=== PATIENT | female | born 1975 | race Caucasian/White ===

== ENCOUNTER → 2017-10-05 | Outpatient (CLI) | payer OTHER ==
[2017-10-05 12:48] LABS: T4, Free (Free Thyroxine) 0.96 ng/dL (0.78-2.19)
== END | disposition home or self-care (01) ==
LOC: LABWHC1 11:47
PROVIDERS: ATTEND Obstetrics & Gynecology
DX: R53.83 Other fatigue (principal); Z13.220 Encounter for screening for lipoid disorders; Z13.1 Encounter for screening for diabetes mellitus
CPT/HCPCS: 36415; 80061; 82306; 82947; 84439; 84443

== ENCOUNTER → 2017-10-11 | Outpatient (CLI) | payer OTHER ==
--- NOTE | 2017-10-11 14:25 | MM ---
Reason for exam: screening (asymptomatic). Baseline mammogram. Physical Findings: Nurse did not find any significant physical abnormalities on exam. MG Screening Mammo w CAD Bilateral CC, MLO, and XCCL view(s) were taken. The breast tissue is heterogeneously dense. This may lower the sensitivity of mammography. No suspicious abnormality. These results were verbally communicated with the patient and result sheet given to the patient on 10/11/17. ASSESSMENT: Negative, BI-RAD 1 RECOMMENDATION: Routine screening mammogram of both breasts in 1 year.
== END | disposition home or self-care (01) ==
LOC: RADMAMWWP 13:06
PROVIDERS: ATTEND Obstetrics & Gynecology
DX: Z12.31 Encounter for screening mammogram for malignant neoplasm of breast (principal)
CPT/HCPCS: 77067

== ENCOUNTER → 2018-05-17 | Outpatient (CLI) | payer OTHER ==
[2018-05-17 10:13] LABS: Basophils % (A) 0 %; Eosinophils # (A) 0.1 k/uL (0-0.7); Eosinophils % (A) 1 %; HCT 41.1 % (34.0-46.0); HGB 14.1 gm/dL (11.4-16.0); Lymphocytes % (A) 18 %; MCHC 34.2 g/dL (31.0-37.0); MCV 87.8 fL (80.0-100.0); Monocytes # (A) 0.4 k/uL (0-1.0); Monocytes % (A) 8 %; Neutrophils # (A) 3.8 k/uL (1.3-7.7); Neutrophils % (A) 71 %; Platelet Count 235 k/uL (150-450); RBC 4.68 m/uL (3.80-5.40); RDW 13.2 % (11.5-15.5); WBC 5.4 k/uL (3.8-10.6)
== END | disposition home or self-care (01) ==
LOC: LABPAT 09:40
PROVIDERS: ATTEND Obstetrics & Gynecology
DX: Z01.812 Encounter for preprocedural laboratory examination (principal)
CPT/HCPCS: 36415; 85025

== ENCOUNTER 2018-05-23 06:01 | Day surgery (SDC) | payer OTHER ==
[2018-05-15 15:49] VITALS: BMI 24.1
--- NOTE | 2018-05-22 20:34 | P.HPOB ---
History of Present Illness H&P Date: 05/22/18 Chief Complaint: Menorrhagia with irregular cycle, possible endometrial polyp This is a 42-year-old female 5 para 4 who presents for dilation and curettage with hysteroscopy and NovaSure endometrial ablation secondary to menorrhagia with irregular cycle and possible endometrial polyp on ultrasound. She was tried on a course of low-dose control pills but had to discontinue due to forgetting to take pills. Her menses are occurring every 21 days and lasting 7-8 days with the first 2 days heavy with clots and changing her tampon and pad every half hour. She also gets paretic breakthrough bleeding in between her menses. Her pelvic ultrasound showed a uterus measuring 8.5 x 5.5 x 4.3 cm with an endometrial thickness of 11 mm and a possible endometrial polyp measuring 1.1 x 2.5 cm. Both ovaries appeared normal. She has previously had a tubal ligation. Obstetrical history: . History of 4 deliveries and 1 spontaneous miscarriage. Gynecologic history: No history of sexually transmitted diseases. Social history: She is . 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 Review of Systems Constitutional: Reports fatigue, Reports night sweats Eyes: denies blurred vision, denies pain Ears, nose, mouth and throat: Denies headache, Denies sore throat Cardiovascular: Denies chest pain, Denies shortness of breath Respiratory: Denies cough Gastrointestinal: Reports constipation Genitourinary: Reports dysmenorrhea, Reports dyspareunia, Reports menorrhagia, Reports pelvic pain Menstruation: Reports cycle < 21 days, Reports period heavy Musculoskeletal: Reports low back pain Integumentary: Denies pruritus, Denies rash Neurological: Denies numbness, Denies weakness Psychiatric: Denies anxiety, Denies depression Past Medical History Past Medical History: No Reported History Additional Past Medical History / Comment(s): MENORRHAGIA WITH ENDOMETRIAL POLYP. History of Any Multi-Drug Resistant Organisms: None Reported Past Surgical History: Appendectomy, Section (X 4), Cholecystectomy, Tubal Ligation Past Anesthesia/Blood Transfusion Reactions: No Reported Reaction Past Psychological History: No Psychological Hx Reported Smoking Status: Former smoker Past Alcohol Use History: Occasional Additional Past Alcohol Use History / Comment(s): Quit smoking 13 yrs ago, smoked 9-10 yrs, 1PPD. Past Drug Use History: None Reported - Past Family History Mother Family Medical History: No Reported History Medications and Allergies Home Medications Medication Instructions Recorded Confirmed Type Cyanocobalamin (Vitamin B-12) 1,000 mcg PO DAILY 04/16/18 05/15/18 History [Vitamin B-12] Ibuprofen [Motrin Ib] 400 mg PO ONCE PRN 05/15/18 05/15/18 History Allergies Allergy/AdvReac Type Severity Reaction Status Date / Time No Known Allergies Allergy Verified 05/15/18 15:20 Exam Osteopathic Statement: *. No significant issues noted on an osteopathic structural exam other than those noted in the History and Physical/Consult. HEENT: Within normal limits Heart: Regular rate and rhythm Lungs: Clear to auscultation bilaterally Abdomen: Soft, nontender Pelvic exam: Uterus is small, anteverted, with no adnexal masses or tenderness palpated. Extremities: Negative edema Assessment and Plan (1) Menorrhagia with irregular cycle Status: Acute Code(s): N92.1 - EXCESSIVE AND FREQUENT MENSTRUATION WITH IRREGULAR CYCLE SNOMED Code(s): 672757872 (2) Endometrial polyp Status: Acute Code(s): N84.0 - POLYP OF CORPUS UTERI SNOMED Code(s): 64798609 Plan: Proceed with dilation and curettage with hysteroscopy and NovaSure endometrial ablation. I have discussed the risks, benefits, and alternative therapies for the above- mentioned procedure and for both sedation/anesthesia as well as necessary blood products administration, if indicated, as they pertain to this patient. The patient has indicated her understanding and acceptance of the risks and procedures discussed.
[~2018-05-23 06:01] MED LIST: DEXAMETHASONE SOD PHOSPHATE 10 MG/ML 1 ML VIAL IV ONE; LIDOCAINE 1% 20 ML VIAL (10MG/ML) FOR IV START INTRADERMA PRN; MIDAZOLAM 2 MG/2 ML VIAL IV PRN; ONDANSETRON 4 MG/2 ML VIAL IVP ONE; Pre Op ABX Message 1 EACH MISC MISCELLANE ONE; fentaNYL (PF) 50 MCG/ML 2 ML AMP IV PRN
[2018-05-23] MEDS: LACTATED RINGERS 1,000 ML IV SCH ×2 (06:49→07:35)
[2018-05-23] MEDS ORDERED: PROPOFOL 10 MG/ML 20 ML VIAL IV ONE (07:36)
[2018-05-23] MEDS ORDERED: fentaNYL (PF) 50 MCG/ML 2 ML AMP ONE (07:36)
[2018-05-23] MEDS ORDERED: LIDOCAINE 1% INJ 10MG/ML (20 ML MDV) ONE (07:36)
[2018-05-23] MEDS ORDERED: MIDAZOLAM 2 MG/2 ML VIAL ONE (07:36)
[2018-05-23] MEDS ORDERED: KETOROLAC 30 MG/ML 1 ML VIAL ONE (07:36)
[2018-05-23 08:21] VITALS: TEMP 97.7
[2018-05-23 08:22] VITALS: RESP 16
--- NOTE | 2018-05-23 08:45 | P.OP ---
Date of Procedure: 05/23/18 Preoperative Diagnosis: Menorrhagia with irregular cycle, possible endometrial polyp Postoperative Diagnosis: Same Procedure(s) Performed: Dilation and curettage with hysteroscopy Anesthesia: other (Mask general) Surgeon: Manisha Decker Estimated Blood Loss (ml): 10 Pathology: other (Endometrial curettings) Condition: stable Disposition: same day Indications for Procedure: This is a 42-year-old female 5 para 4 who presents for dilation and curettage with hysteroscopy secondary to menorrhagia with irregular cycle and possible endometrial polyp on ultrasound. She was tried on a course of low- dose control pills but had to discontinue due to forgetting to take pills. Her menses are occurring every 21 days and lasting 7-8 days with the first 2 days heavy with clots and changing her tampon and pad every half hour. She also gets paretic breakthrough bleeding in between her menses. Her pelvic ultrasound showed a uterus measuring 8.5 x 5.5 x 4.3 cm with an endometrial thickness of 11 mm and a possible endometrial polyp measuring 1.1 x 2.5 cm. Both ovaries appeared normal. She has previously had a tubal ligation. Operative Findings: Uterus is mid to anteverted position with no adnexal masses palpated. Uterus is sounded to 9-1/2 cm. Upon hysteroscopy, both tubal ostia are visualized. There is what appears to be a small endometrial polyp anteriorly near the lower uterine segment. A minimal to moderate amount of endometrial curettings are obtained. Description of Procedure: Patient is taken the operating room where she is placed in the dorsal lithotomy position. She is prepped and draped in the normal sterile fashion. Bladder is drained with a catheter. Pelvic exam is performed under anesthesia. Uterus is found to be mid to anteverted position with no adnexal masses palpated. A weighted speculum was placed in the patient's vagina and a right angle retractor was used to visualize the cervix. The single-tooth tenaculum was used to grasp the anterior lip of the cervix. Next the uterus is sounded to 9-1 /2 cm. Cervix is gently dilated with Isidro dilators until a hysteroscope could be passed. Hysteroscopy was performed using normal saline. The above noted findings are made. Pictures are taken. Next the hysteroscope was withdrawn. The cervix is gently dilated further. A polyp forcep was introduced with a small amount of polypoid tissue obtained. Next a medium-size sharp curet was introduced and sharp curettage was performed until a gritty texture was noted. A minimal to moderate amount of tissue was obtained. Next the single-tooth tenaculum is removed and no bleeding was noted. All other instruments are removed from the vagina. All sponge counts are correct. The patient is taken to recovery room in stable condition.
[2018-05-23 09:21] VITALS: BP 129/79; PULSE 65
== END 2018-05-23 09:32 | disposition home or self-care (01) ==
LOC: OR 06:01
PROVIDERS: ATTEND Obstetrics & Gynecology
DX: N92.0 Excessive and frequent menstruation with regular cycle (principal); N92.6 Irregular menstruation, unspecified; N84.0 Polyp of corpus uteri; Z87.891 Personal history of nicotine dependence
CPT/HCPCS: 81025; 88305; 58558; J2250; J1100; J2405; J2001; J3010; J1885; J2704

== ENCOUNTER → 2021-04-25 | Outpatient (CLI) | payer BC ==
[2021-04-25 21:10] LABS: African American GFR (CKD) 90.8 (60.0-200.0); Albumin 4.6 g/dL (3.80-4.90); Albumin/Globulin Ratio 1.7 (1.60-3.17); Anion Gap 10.5 mmol/L (4.00-12.00); BUN/Creat Ratio 17.78 Ratio (12.00-20.00); Calcium 9.4 mg/dL (8.7-10.3); Carbon Dioxide 19.5 mmol/L (21.6-31.8); Chol/HDL Ratio 3.53; Globulin 2.7 g/dL (1.6-3.3); LDL Cholesterol,Calculated 137.6 mg/dL (0.0-131.0); Non-African American GFR(CKD) 78.3 (60.0-200.0); Potassium 4.3 mmol/L (3.5-5.5); Total Bilirubin 0.4 mg/dL (0.2-1.2); Total Protein 7.3 g/dL (6.2-8.2); VLDL Calculation 19.4 mg/dL (5.00-40.00)
== END | disposition home or self-care (01) ==
LOC: LABWHC1 08:47
PROVIDERS: ATTEND Internal Medicine Clinical Cardiac Electrophysiology
DX: I49.3 Ventricular premature depolarization (principal); E78.5 Hyperlipidemia, unspecified; G80.9 Cerebral palsy, unspecified
CPT/HCPCS: 36415; 80053; 80061; 84443

== ENCOUNTER → 2024-01-01 | Outpatient (CLI) | payer OTHER ==
[2024-01-01 09:15] VITALS: BP 143/86; PULSE 78; RESP 16; TEMP 97.9
--- NOTE | 2024-01-01 09:43 | P.HPOB ---
History of Present Illness H&P Date: 01/01/24 Chief Complaint: The patient is here for her routine gynecologic exam and ma mmogram. This is a 48-year-old with an LMP of 12/23/2023. Patient is here to establish with this office. It has been about 2 years since her last pelvic exam. She is status post tubal ligation. She previously saw Dr. Decker for her gynecologic care. Her menstrual periods are about monthly, but they have been predictable and seem to be getting longer and heavier. They are now lasting about 10 days with 4 days of heavier flow. Menstrual periods are heavier than others. On the very heavy days she can change her protection every 30 minutes and they can be crampy as well. Review of Systems The patient has gained 5 pounds over the last year. She denies respiratory, cardiac, or G.I. problems. Past Medical History Past Medical History: No Reported History Additional Past Medical History / Comment(s): MENORRHAGIA WITH ENDOMETRIAL POLYP. 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 Cryo therapy of the cervix in 2001 History of Any Multi-Drug Resistant Organisms: None Reported Past Surgical History: Appendectomy, Section, Cholecystectomy, Tubal Ligation Additional Past Surgical History / Comment(s): section x 4. Past Anesthesia/Blood Transfusion Reactions: No Reported Reaction Past Psychological History: No Psychological Hx Reported Smoking Status: Former smoker Past Alcohol Use History: Occasional (1 drink per week.) Additional Past Alcohol Use History / Comment(s): Quit smoking 2004, smoked 9-10 yrs, 1PPD. Past Drug Use History: None Reported Additional History: Patient has been since 2010. 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 - Past Family History Mother Family Medical History: COPD, Hypertension Additional Family Medical History / Comment(s): . Father Family Medical History: Hypertension, Myocardial Infarction ([place]) Additional Family Medical History / Comment(s): . Medications and Allergies Home Medications Medication Instructions Recorded Confirmed Type Ibuprofen [Motrin Ib] 400 mg PO ONCE PRN 05/15/18 01/01/24 History Allergies Allergy/AdvReac Type Severity Reaction Status Date / Time No Known Allergies Allergy Verified 01/01/24 08:32 Exam Vital Signs Temp Pulse Resp BP Pulse Ox 01/01/24 08:34 97.9 F 78 16 143/86 97 Intake and Output 12/31/23 01/01/24 01/01/24 22:59 06:59 14:59 Other: Weight 61.689 kg Height 5 foot 1 inch, weight 136 pounds, BMI 25.7. This is a well-developed well-nourished white female who is alert and oriented times 3 in no acute distress. HEENT: Within normal limits. NECK: Supple without mass or thyromegaly. CHEST AND LUNGS: Clear to auscultation. HEART: Regular rate and rhythm. BREASTS: Are without mass or discharge. AXILLARY EXAM: Negative for adenopathy. BACK: Negative for CVA tenderness. ABDOMEN: Soft, nontender, without palpable masses. PELVIC EXAM: Normal external genitalia. Cervix and vagina appear normal. There is no unusual discharge. There is no evidence of prolapse. The uterus is midposition, nongravid size and nontender. There are no palpable adnexal masses or tenderness. RECTAL EXAM: negative for mass or tenderness and is negative for occult blood. EXTREMITIES: Nontender. IMPRESSION: 1. 48-year-old female who is status post tubal ligation, normal gynecologic exam. 2. Menorrhagia with dysmenorrhea. 3. Elevated blood pressure. PLAN: 1. Pap smear cotest was performed. 2. Self breast awareness was discussed with the patient. We have also discussed symptoms associated with inflammatory breast cancer. 3. Screening mammogram will be done today. 4. We have discussed various options for her menorrhagia and dysmenorrhea. We will have a trial of meclofenamate sodium 100 mg p.o. 3 times daily as needed for heavy menstrual flow up to 6 days per cycle. Electronic prescription will be sent to [facility]. We have discussed other options including oral contraception, Mirena IUD, endometrial ablation, and hysterectomy 5. Pelvic ultrasound was recommended to further evaluate the uterus because of the menorrhagia. She was once told by Dr. Decker that she may not be a candidate for endometrial ablation because of the location of her bladder. We will try to assess the thickness of the myometrium at the lower uterine segment. 6. Osteoporosis prevention was discussed. I have stressed the importance of adequate calcium, vitamin D and regular exercise. Recommended amounts of calcium and vitamin D were also discussed. 7. Colorectal cancer screening was discussed. She will discuss this with her PCP. 8. She was advised to return in one year for her annual well woman exam as needed. 9. Her elevated blood pressure was discussed. I have recommended that she check her own blood pressures on a regular basis since she does have a blood pressure cuff she will follow-up with her PCP for blood pressure elevations
--- NOTE | 2024-01-02 00:29 | MM ---
Reason for Exam: Screening (asymptomatic). Last mammogram was performed 2 year(s) and 10 month(s) ago. Patient History: Menarche at age 16. First Full-Term at age 20. Last menstrual period: 12/23/2023 Risk Values: Jackeline 5 year model risk: 0.6%. NCI Lifetime model risk: 6.3%. Prior Study Comparison: 10/11/2017 Bilateral Screening Mammogram, [facility]. 03/09/2021 Bilateral Screening Mammogram, [facility]. Tissue Density: There are scattered areas of fibroglandular density. Findings: Analyzed By CAD. The pattern is symmetrical. No significant interval change No suspicious groups of microcalcifications, spiculated or lobular masses, architectural distortion or other secondary signs of malignancy are mammographically apparent.The pattern is symmetrical. No suspicious groups of microcalcifications, spiculated or lobular masses, architectural distortion or other secondary signs of malignancy are mammographically apparent. Overall Assessment: Negative, BI-RAD 1 Management: Screening Mammogram of both breasts in 1 year. Electronically signed and approved by: Nestor Hylton D.O. Radiologis
== END ==
LOC: WWCWWP 08:17
PROVIDERS: ATTEND Obstetrics & Gynecology
DX: Z01.419 Encounter for gynecological examination (general) (routine) without abnormal findings (principal); Z12.31 Encounter for screening mammogram for malignant neoplasm of breast; N92.0 Excessive and frequent menstruation with regular cycle; N94.6 Dysmenorrhea, unspecified; R03.0 Elevated blood-pressure reading, without diagnosis of hypertension; Z98.51 Tubal ligation status; Z87.891 Personal history of nicotine dependence
CPT/HCPCS: 77067

== ENCOUNTER → 2024-01-27 | Outpatient (CLI) | payer OTHER ==
--- NOTE | 2024-01-27 18:07 | US ---
EXAMINATION TYPE: US pelvis complete transvag DATE OF EXAM: 01/27/2024 COMPARISON: NONE CLINICAL INDICATION: Female, 48 years old with history of N95.0 POSTMENOPAUSAL BLEEDING; Irregular me nses. Csection x 4. TECHNIQUE: Transvaginal (TV) and Transabdominal (TA) . Transabdominal sonographic images of the pel vis were acquired. Transvaginal sonographic images were medically necessary to better assess the fol lowing anatomy: Endometrium Date of LMP: 12/23/2023, EXAM MEASUREMENTS: Uterus: 9.1 x 4.1 x 3.4 cm Endometrial Stripe: 0.3 cm Right Ovary: 1.7 x 1.4 x 1.0 cm Left Ovary: 2.2 x 1.4 x 1.2 cm 1. Uterus: Anteverted Heterogenous. Csection scar seen. Possible isoechoic anterior mid lesion = 2.0 x 2.2 x 1.7 cm. 2. Endometrium: limited visualization 3. Right Ovary: wnl 4. Left Ovary: wnl 5. Bilateral Adnexa: wnl 6. Posterior cul-de-sac: no free fluid IMPRESSION: 1. No evidence for acute process. 2. Fibroid uterus. 3. Endometrium within normal limits for thickness.
== END | disposition home or self-care (01) ==
LOC: RADUSWWP 16:10
PROVIDERS: ATTEND Obstetrics & Gynecology
DX: D25.9 Leiomyoma of uterus, unspecified (principal); N92.0 Excessive and frequent menstruation with regular cycle; N94.5 Secondary dysmenorrhea
CPT/HCPCS: 76830; 76856

== ENCOUNTER → 2024-07-28 | Outpatient (CLI) | payer OTHER ==
[2024-07-28 15:21] LABS: HCT 42.5 % (37.2-46.3); MCHC 32.9 g/dL (32.0-37.0); Mean Platelet Volume 11.2 FL (9.5-12.2); NRBC Per 100 WBC 0 X 10*3/uL (0.00-0.01); Platelet Count 285 X 10*3/uL (140-440); RBC 4.67 X 10*6/uL (4.10-5.20); WBC 4.53 X 10*3/uL (4.50-10.00)
[2024-07-28 16:05] LABS: Erythrocyte Sedimentation Rate 8 mm/Hr (0-20)
[2024-07-28 16:31] LABS: ALT 50 U/L (8-44); AST 30 U/L (13-35); Albumin 4.6 g/dL (3.8-4.9); Albumin/Globulin Ratio 1.84 Ratio (1.60-3.17); Alkaline Phosphatase 48 U/L (41-126); Blood Urea Nitrogen 15.2 mg/dL (9.0-27.0); C Reactive Protein, High Sens 0.938 mg/L (0.000-3.000); Calcium 9.8 mg/dL (8.7-10.3); Carbon Dioxide 23.2 mmol/L (21.6-31.8); Chloride 105 mmol/L (96-109); Globulin 2.5 g/dL (1.6-3.3); Glucose 94 mg/dL (70-110); Potassium 4.7 mmol/L (3.5-5.5); Sodium 142 mmol/L (135-145); Total Bilirubin 0.2 mg/dL (0.3-1.2); Total Protein 7.1 g/dL (6.2-8.2)
== END | disposition home or self-care (01) ==
LOC: LABWHC1 09:29
PROVIDERS: ATTEND Internal Medicine Clinical Cardiac Electrophysiology
CPT/HCPCS: 36415; 80053; 84443; 85027; 85652; 86141

== ENCOUNTER → 2025-01-13 | Outpatient (CLI) | payer OTHER ==
[2025-01-13 08:32] VITALS: BP 135/90; PULSE 76; RESP 16; TEMP 98
--- NOTE | 2025-01-13 09:05 | P.HPOB ---
History of Present Illness H&P Date: 01/13/25 Chief Complaint: The patient is here for her routine gynecologic exam and ma mmogram. This is a 49-year-old G4, P4 with an LMP of 12/02/2024. The patient is status post tubal ligation. She states her menstrual periods have become more irregular about every 1 to 3 months with variable flow. She states they were regular up until about 6 months ago. She has occasional night hot flashes, but otherwise denies any significant vasomotor symptoms. She is otherwise without gynecologic complaints. She has been trying to exercise more for weight control. She states when she was doing abdominal crunches or sit ups, she noticed a slight bulge in the right lower abdomen that was uncomfortable. This quickly resolved after stopping those exercises. Review of Systems The patient has gained 6 pounds over the last year. She denies respiratory, cardiac, or G.I. problems. Past Medical History Past Medical History: No Reported History Additional Past Medical History / Comment(s): MENORRHAGIA WITH ENDOMETRIAL POLYP. 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 Cryo therapy of the cervix in 2001 History of Any Multi-Drug Resistant Organisms: None Reported Past Surgical History: Appendectomy, Section, Cholecystectomy, Tubal Ligation Additional Past Surgical History / Comment(s): section x 4. H/S D&C 2018(small polyp) Past Anesthesia/Blood Transfusion Reactions: No Reported Reaction Past Psychological History: No Psychological Hx Reported Smoking Status: Former smoker Past Alcohol Use History: Occasional (1 drink per week.) Additional Past Alcohol Use History / Comment(s): Quit smoking 2004, smoked 9-10 yrs, 1PPD. Past Drug Use History: None Reported Additional History: She has been since 2010. 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 - Past Family History Mother Family Medical History: COPD, Hypertension Additional Family Medical History / Comment(s): . Father Family Medical History: Hypertension, Myocardial Infarction ([place]) Additional Family Medical History / Comment(s): . Medications and Allergies Home Medications Medication Instructions Recorded Confirmed Type Ibuprofen [Motrin Ib] 400 mg PO ONCE PRN 05/15/18 01/01/24 History Allergies Allergy/AdvReac Type Severity Reaction Status Date / Time No Known Allergies Allergy Verified 01/01/24 08:32 Exam Vital Signs Temp Pulse Resp BP Pulse Ox 01/13/25 08:26 98 F 76 16 135/90 98 Intake and Output 01/12/25 01/13/25 01/13/25 22:59 06:59 14:59 Other: Weight 64.41 kg Height 5 feet 1 inch, weight 142 pounds, BMI 26.8. This is a well-developed well-nourished white female who is alert and oriented times 3 in no acute distress. HEENT: Within normal limits. NECK: Supple without mass or thyromegaly. CHEST AND LUNGS: Clear to auscultation. HEART: Regular rate and rhythm. BREASTS: Are without mass or discharge. AXILLARY EXAM: Negative for adenopathy. BACK: Negative for CVA tenderness. ABDOMEN: Soft, nontender, without palpable masses. With hard Valsalva, there are no palpable masses and no apparent pain or tenderness. She states the bulge that she briefly noticed with sit ups is superior to the incision to the right and slightly inferior to the umbilicus. This was not recreated with the Valsalva maneuver. PELVIC EXAM: Normal external genitalia. Cervix and vagina appear normal. There is no unusual discharge. There is no evidence of prolapse. The uterus is midposition, nongravid size and nontender. There are no palpable adnexal masses or tenderness. RECTAL EXAM: negative for mass or tenderness and is negative for occult blood. EXTREMITIES: Nontender. IMPRESSION: 1. 49-year-old perimenopausal female who is status post tubal ligation, with recent menstrual irregularity and minimal vasomotor symptoms. 2. Normal gynecologic exam. 3. Brief right lower quadrant abdominal discomfort with abdominal exercises/stomach crunches. Differential diagnosis will include small incisional or abdominal wall hernia. Also, abdominal adhesions from her appendectomy or C-sections would be a possibility. No significant physical findings on exam today. 4. Mildly elevated blood pressure. PLAN: 1. Pap smear was deferred since she had a negative Pap smear cotest on 2023. 2. Self breast awareness was discussed with the patient. We have also discussed symptoms associated with inflammatory breast cancer. 3. Screening mammogram will be done today. 4. Patient will keep a menstrual calendar and return if menstrual problems such as polymenorrhea or hypermenorrhea. 5. Conservative management regarding the brief abdominal pain is noted with abdominal exercises. She was instructed to avoid the exercises that seem to create this problem. If it is getting worse, she can consider being seen by a general surgeon for a possible abdominal wall hernia. 6. I recommended that she check her own blood pressures at home since she does have a blood pressure cuff. She will do this on a regular basis and follow-up with her PCP for blood pressure elevations. 7. Weight control was discussed. She states she is trying to lose some weight. I have stressed the importance of regular meals, good nutrition, adequate fiber and regular exercise. 8. Osteoporosis prevention was discussed. I have stressed the importance of adequate calcium, vitamin D and regular exercise. Recommended amounts of calcium and vitamin D were also discussed. 9. She was advised to return in one year for her annual well woman exam and as needed.
--- NOTE | 2025-01-13 09:11 | MM ---
Reason for Exam: Screening (asymptomatic). Last screening mammogram was performed 12 month(s) ago. Patient History: Menarche at age 16. First Full-Term at age 20. Risk Values: Jackeline 5 year model risk: 0.6%. NCI Lifetime model risk: 6.2%. Prior Study Comparison: 10/11/2017 Bilateral Screening Mammogram, [facility]. 03/09/2021 Bilateral Screening Mammogram, [facility]. 01/01/2024 Bilateral MG screening mammo w CAD, [facility]. Tissue Density: The breasts are heterogeneously dense, which may obscure small masses. Findings: Analyzed By CAD. Asymmetric density upper outer right breast 5 cm from the nipple. Additional views are recommended. The left breast is free of but distinct nodule or mass. No suspicious calcifications. Overall Assessment: Incomplete: need additional imaging evaluation, BI-RAD 0 Management: Diagnostic Mammogram of the right breast. . Patient should continue monthly self-breast exams. A clinical breast exam by your physician is recommended on an annual basis. This exam should not preclude additional follow-up of suspicious palpable abnormalities. Note on Jackeline scores and lifetime risk: 1. A Jackeline score greater than 3% is considered moderate risk. If this is the case, consider specialist referral to assess eligibility for a risk reducing agent. 2. If overall lifetime risk for the development of breast cancer is 20% or higher, the patient may qualify for future screening with alternating mammogram and breast MRI. [facility], , 01/13/2025 9:08 AM. Electronically signed and approved by: Reuben Davidson M.D. Radiologis
== END ==
LOC: WWCWWP 07:56
PROVIDERS: ATTEND Obstetrics & Gynecology
DX: Z12.31 Encounter for screening mammogram for malignant neoplasm of breast (principal); Z01.419 Encounter for gynecological examination (general) (routine) without abnormal findings; Z87.891 Personal history of nicotine dependence; Z98.51 Tubal ligation status; Z78.0 Asymptomatic menopausal state
CPT/HCPCS: 77063; 77067

== ENCOUNTER → 2025-01-14 | Outpatient (CLI) | payer OTHER ==
--- NOTE | 2025-01-14 08:34 | MM ---
Reason for Exam: Additional evaluation requested from abnormal screening. Last screening mammogram was performed less than 1 month ago. Patient History: Menarche at age 16. First Full-Term at age 20. Perimenopausal. Last menstrual period: 12/02/2024 Risk Values: Jackeline 5 year model risk: 0.6%. NCI Lifetime model risk: 6.2%. Prior Study Comparison: 10/11/2017 Bilateral Screening Mammogram, [facility]. 03/09/2021 Bilateral Screening Mammogram, [facility]. 01/01/2024 Bilateral MG screening mammo w CAD, [facility]. 01/13/2025 Bilateral MG 3D screening mammo w/cad, [facility]. Tissue Density: Right: The breasts are heterogeneously dense, which may obscure small masses. Findings: Analyzed By CAD. 8 mm nodular density persists upper outer quadrant right breast 4.6 cm from the nipple. Ultrasound is recommended. Overall Assessment: Incomplete: need additional imaging evaluation, BI-RAD 0 Management: Diagnostic Breast Ultrasound of the right breast. . Results were given to the patient verbally at the time of exam. Patient should continue monthly self-breast exams. A clinical breast exam by your physician is recommended on an annual basis. This exam should not preclude additional follow-up of suspicious palpable abnormalities. Note on Jackeline scores and lifetime risk: 1. A Jackeline score greater than 3% is considered moderate risk. If this is the case, consider specialist referral to assess eligibility for a risk reducing agent. 2. If overall lifetime risk for the development of breast cancer is 20% or higher, the patient may qualify for future screening with alternating mammogram and breast MRI. [facility], , 01/14/2025 8:30 AM. Electronically signed and approved by: Reuben Davidson M.D. Radiologis
--- NOTE | 2025-01-14 09:19 | USB ---
Reason for Exam: Additional evaluation requested from abnormal screening. Patient History: Menarche at age 16. First Full-Term at age 20. Perimenopausal. Risk Values: [place] 5 year model risk: 0.6%. NCI Lifetime model risk: 6.2%. Technique: Method: Targeted. Prior Study Comparison: 03/09/2021 Bilateral Screening Mammogram, [facility]. 01/01/2024 Bilateral MG screening mammo w CAD, [facility]. 01/13/2025 Bilateral MG 3D screening mammo w/cad, [facility]. Findings: The upper outer quadrant of the right breast, the axilla of the right breast and the retroareolar of the right breast were scanned. Ultrasound of upper outer quadrant of the right breast demonstrates a simple cyst at the right 9:00 position measuring 5 mm. No solid masses are detected. Overall Assessment: Benign, BI-RAD 2 Management: Screening Mammogram of both breasts in 1 year. A clinical breast exam by your physician is recommended on an annual basis and results should be correlated with mammographic findings. This exam should not preclude additional follow-up of suspicious palpable abnormalities. Results were given to the patient verbally at the time of exam. [facility], , 01/14/2025 9:00 AM. Electronically signed and approved by: Reuben Davidson M.D. Radiologis
== END | disposition home or self-care (01) ==
LOC: RADMAMWWP 07:58
PROVIDERS: ATTEND Obstetrics & Gynecology
DX: R92.8 Other abnormal and inconclusive findings on diagnostic imaging of breast (principal); R92.331 Mammographic heterogeneous density, right breast; N60.01 Solitary cyst of right breast
CPT/HCPCS: 77061; 77065